=== PATIENT | female | born 1955 | race American Indian/Alaskan Native ===

== ENCOUNTER 2018-06-05 11:06 | Emergency (ER) | payer MEDICAID, OTHER ==
[2018-06-05 11:15] VITALS: BP 151/80
--- NOTE | 2018-06-05 11:21 | Emergency Department Report ---
Blank Doc - Documentation Documentation: C/O urinary frequency and urine pressure since Saturday. Lower abd pain. Hx/o p ancreatic CA. s/p removal of partial pancreas. No fevers. High blood sugar. This initial assessment diagnostic orders/clinical plan/treatment (s) is/Are subject change based on patient's health status, clinical progression and re- assessment by fellow clinical providers in the ED. Further treatment and work-up at subsequent clinical providers discretion. Patient/guardians urged not to elope from their condition may be serious if not clinically assessed and managed. Initial order include:
[2018-06-05] MEDS ORDERED: NACL 0.9% 1000 ML 1,000 ML IV ONE (11:34)
--- NOTE | 2018-06-05 11:58 | Emergency Department Report ---
ED Abdominal Pain HPI - General Chief Complaint: Abdominal Pain Stated Complaint: UTI/CANCER PATIENT Time Seen by Provider: 06/05/18 11:11 Source: patient Mode of arrival: Ambulatory Limitations: No Limitations - History of Present Illness Initial Comments: This is a 62-year-old female with a sensation of suprapubic heaviness for the past few days. She has traveled to [place] from [place] family members. They are planning to travel to [place] to go to [facility]. She states that she is planning to "have an exotic drink" down there. She does not complain of any actual dysuria or urinary frequency. She simply states that she has a sens ation of heaviness. She had a small bowel movement while in the emergency department she denies nausea or vomiting. There is been no fever or chills. Patient's past medical history is quite significant with a diagnosis of pancreatic cancer in 2017. 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 She received a muscle chemotherapy. She no longer has a port. She believes that her cancer has been cured. MD Complaint: abdominal pain -: Gradual, days(s) Location: suprapubic Radiation: none Migration to: no migration Severity: mild, moderate Severity scale (0 -10): 0 Quality: other ("heaviness") Consistency: intermittent Improves With: nothing Worsens With: nothing Context: other (history of pancreatic cancer) Associated Symptoms: denies other symptoms - Related Data Previous Rx's Medication Instructions Recorded Last Taken Type Ciprofloxacin HCl [Cipro] 500 mg PO BID #10 tablet 06/05/18 Unknown Rx Tramadol HCl [Ultram] 50 mg PO Q6H #10 tablet 06/05/18 Unknown Rx Allergies Allergy/AdvReac Type Severity Reaction Status Date / Time No Known Allergies Allergy Verified 06/05/18 11:08 ED Review of Systems ROS: Stated complaint: UTI/CANCER PATIENT Other details as noted in HPI Constitutional: denies: chills, fever Eyes: denies: eye pain, eye discharge, vision change ENT: denies: ear pain, throat pain Respiratory: denies: cough, shortness of breath, wheezing Cardiovascular: denies: chest pain, palpitations Endocrine: no symptoms reported Gastrointestinal: abdominal pain. denies: nausea, diarrhea Genitourinary: denies: urgency, dysuria, discharge Musculoskeletal: denies: back pain, joint swelling, arthralgia Skin: denies: rash, lesions Neurological: denies: headache, weakness, paresthesias Psychiatric: denies: anxiety, depression Hematological/Lymphatic: denies: easy bleeding, easy bruising ED Past Medical Hx - Past Medical History Previous Medical History?: Yes Hx Diabetes: Yes Hx of Cancer: Yes (PANCREAS) - Surgical History Additional Surgical History: SLPEEN AND PANCREAS - Social History Smoking Status: Never Smoker Substance Use Type: None - Medications Home Medications: Home Medications Medication Instructions Recorded Confirmed Last Taken Type Ciprofloxacin HCl [Cipro] 500 mg PO BID #10 tablet 06/05/18 Unknown Rx Tramadol HCl [Ultram] 50 mg PO Q6H #10 tablet 06/05/18 Unknown Rx ED Physical Exam - General Limitations: No Limitations General appearance: alert, in no apparent distress - Head Head exam: Present: atraumatic, normocephalic - Eye Eye exam: Present: normal appearance. Absent: scleral icterus - ENT ENT exam: Present: mucous membranes moist - Neck Neck exam: Present: normal inspection - Respiratory Respiratory exam: Present: normal lung sounds bilaterally. Absent: respiratory distress - Cardiovascular Cardiovascular Exam: Present: regular rate, normal rhythm. Absent: systolic murmur, diastolic murmur, rubs, gallop - GI/Abdominal GI/Abdominal exam: Present: soft, normal bowel sounds. Absent: distended, tenderness, guarding, rebound, rigid - Extremities Exam Extremities exam: Present: normal inspection - Back Exam Back exam: Present: normal inspection - Neurological Exam Neurological exam: Present: alert, oriented X3, CN II-XII intact. Absent: motor sensory deficit - Psychiatric Psychiatric exam: Present: normal affect, normal mood - Skin Skin exam: Present: warm, dry, intact, normal color. Absent: rash ED Course Vital Signs 06/05/18 11:11 Temperature 97.8 F Pulse Rate 84 Respiratory 18 Rate Blood Pressure 151/80 O2 Sat by Pulse 99 Oximetry - Reevaluation(s) Reevaluation #1: Informed me that the patient declined an IV. I went over her testing which suggest a possible bladder infection although not definitively so. I informed her that we would have to do a CT to finish her medical screening and preferably that would involve IV contrast. She is asymptomatic at this time. She has full mental capacity to declined further testing which she has done. She tells me that she will follow-up with her primary care physician when she goes back home. As such I will not require that she signs out AGAINST MEDICAL ADVICE. She does not have an elevated white blood cell count nor an exam suggestive of an acute abdominal process. The importance of further medical screening is emphasized to the patient. 06/05/18 12:41 ED Medical Decision Making - Lab Data Result diagrams: 06/05/18 11:55 06/05/18 11:55 Laboratory Results - last 24 hr 06/05/18 06/05/18 06/05/18 11:24 11:44 11:55 WBC 5.4 RBC 4.47 Hgb 13.5 Hct 40.4 MCV 90 MCH 30 MCHC 33 RDW 14.0 Plt Count 234 Lymph % (Auto) 43.1 H [place] % (Auto) 10.3 H Eos % (Auto) 3.3 Baso % (Auto) 0.9 Lymph # 2.3 [place] # 0.6 Eos # 0.2 Baso # 0.0 Seg Neutrophils % 42.4 Seg Neutrophils # 2.3 PT INR APTT VBG pH POC Glucose 403 H Urine Color Yellow Urine Turbidity Slightly-cloudy Urine pH 5.0 Ur Specific [place] 1.027 Urine Protein <15 mg/dl Urine Glucose (UA) >=500 Urine Ketones Neg Urine Blood Neg Urine Nitrite Neg Urine Bilirubin Neg Urine Urobilinogen < 2.0 Ur Leukocyte Esterase Tr Urine WBC (Auto) 6.0 Urine RBC (Auto) 2.0 U Epithel Cells (Auto) 7.0 Urine Bacteria (Auto) 1+ Urine Mucus Few 06/05/18 06/05/18 06/05/18 11:55 11:55 11:59 WBC RBC Hgb Hct MCV MCH MCHC RDW Plt Count Lymph % (Auto) [place] % (Auto) Eos % (Auto) Baso % (Auto) Lymph # [place] # Eos # Baso # Seg Neutrophils % Seg Neutrophils # PT 13.3 INR 0.95 APTT 25.5 VBG pH 7.336 POC Glucose 370 H Urine Color Urine Turbidity Urine pH Ur Specific [place] Urine Protein Urine Glucose (UA) Urine Ketones Urine Blood Urine Nitrite Urine Bilirubin Urine Urobilinogen Ur Leukocyte Esterase Urine WBC (Auto) Urine RBC (Auto) U Epithel Cells (Auto) Urine Bacteria (Auto) Urine Mucus Critical care attestation.: If time is entered above; I have spent that time in minutes in the direct care of this critically ill patient, excluding procedure time. ED Disposition Clinical Impression: Abdominal pain Qualifiers: Abdominal location: periumbilical Qualified Code(s): R10.33 - Periumbilical pain Acute cystitis Qualifiers: Hematuria presence: without hematuria Qualified Code(s): N30.00 - Acute cystitis without hematuria Disposition: TO HOME OR SELFCARE Is pt being admited?: No Condition: Stable Instructions: Abdominal Pain (ED), Urinary Tract Infection in Women (ED) Additional Instructions: I have ordered a urine culture which will determine whether you need continued treatment for UTI. This test requires 2-3 days to complete. He will need to call for these results. Further medical screening such as a CT scan of the abdomen has been recommended. Please follow-up with your primary care physician to do so. Return to emergency department should you desire further medical evaluation. Rx as directed. Prescriptions: Ciprofloxacin HCl [Cipro] 500 mg PO BID #10 tablet Tramadol HCl [Ultram] 50 mg PO Q6H #10 tablet Referrals: KORI ROLLINS MD [Primary Care Provider] - 3-5 Days Time of Disposition: 12:44
[2018-06-05 12:19] LABS: Basophils % (Auto) 0.9 % (0.0-1.8); Eosinophils # (Auto) 0.2 K/mm3 (0.0-0.4); Eosinophils % (Auto) 3.3 % (0.0-4.3); Hematocrit 40.4 % (30.3-42.9); Hemoglobin 13.5 gm/dl (10.1-14.3); Lymphocytes # (Auto) 2.3 K/mm3 (1.2-5.4); Lymphocytes % (Auto) 43.1 % (13.4-35.0); Mean Corpuscular HGB Conc 33 % (30-34); Mean Corpuscular Volume 90 fl (79-97); Monocytes # (Auto) 0.6 K/mm3 (0.0-0.8); Monocytes % (Auto) 10.3 % (0.0-7.3); Platelet Count 234 K/mm3 (140-440); Red Blood Count 4.47 M/mm3 (3.65-5.03)
[2018-06-05 12:24] LABS: Bacteria,Urine 1+ /HPF (Negative); Bilirubin,Urine NEG (Negative); Blood,Urine NEG (Negative); Color,Urine Yellow (Yellow); Mucus,Urine FEW /HPF; Protein,Urine <15 mg/dL mg/dL (Negative); Urobilinogen,Urine < 2.0 mg/dL (<2.0)
[2018-06-05 12:29] LABS: INR 0.95 (0.87-1.13)
[2018-06-05 12:30] LABS: Partial Thromboplastin Time 25.5 Sec. (24.2-36.6)
[2018-06-05 12:39] LABS: Alanine Aminotransferase 15 units/L (7-56); Albumin 4.1 g/dL (3.9-5); BUN/Creatinine Ratio 25; Blood Urea Nitrogen 15 mg/dL (7-17); Calcium 9.2 mg/dL (8.4-10.2); Hemolysis Index 7
[2018-06-05] MEDS ORDERED: HumuLIN R SUB-Q ONE (12:46)
== END 2018-06-05 12:54 | disposition home or self-care (01) ==
LOC: ED 11:06
DX: R10.33 Periumbilical pain (principal); N30.00 Acute cystitis without hematuria; E11.9 Type 2 diabetes mellitus without complications; Z85.07 Personal history of malignant neoplasm of pancreas
CPT/HCPCS: 36415; 80053; 81001; 82010; 82805; 82962; 83690; 83735; 85025; 85610; 85730; 99283